=== PATIENT | male | born 1975 | race Caucasian/White ===

== ENCOUNTER → 2020-04-07 | Outpatient (CLI) | payer BC ==
--- NOTE | 2020-04-07 12:16 | ECHOS ---
STRESS ECHOCARDIOGRAM INDICATION: Chest pain. MEDICATIONS: BASELINE HEART RATE: 80 BASELINE BLOOD PRESSURE: 140/98 MAXIMUM HEART RATE: 153 MAXIMUM BLOOD PRESSURE: 205/80 85% MPHR: 148 100% MPHR: 174 METS: 10 MAXIMUM STAGE REACHED: II TOTAL EXERCISE TIME: 8-1/2 minutes CLINICAL INFORMATION: Baseline EKG shows sinus rhythm with poor R-wave progression, normal axis, normal intervals. Patient exercised on Redd protocol for a total of 8-1/2 minutes achieving 10 METs, 88% of predicted maximal heart rate without chest pain or diagnostic ST- segment depression. Baseline echo shows normal left ventricular size, wall motion and systolic function. Postexercise, there is normal hyperdynamic response of all segments of myocardium noted. Echo contrast agent was used to enhance endocardial visualization. CONCLUSIONS: 1. Good exercise tolerance. 2. Negative stress test by EKG criteria. 3. Negative stress echo. MMODL / IJN: [id number] /
== END | disposition home or self-care (01) ==
LOC: RADNMMAIN 09:05
PROVIDERS: ATTEND Family Medicine
DX: R94.31 Abnormal electrocardiogram [ECG] [EKG] (principal); R07.9 Chest pain, unspecified
CPT/HCPCS: 93351; Q9950